=== PATIENT | female | born 1935 | race African-American/Black ===

== ENCOUNTER 2018-08-28 06:14 | Emergency (ER) | payer OTHER ==
[~2018-08-28] VITALS: Ht 157.5 cm; Wt 86.0 kg
[~2018-08-28 06:14] MED LIST: ALBU05 IH; AMLO10TA4 PO; ANAS1TAB49 PO; ASPI-1158 PO; AZAT50TA18 PO; DIGO125T82 PO; FURO-152 PO; GLIP10TA10 PO; ISOS60TA4 PO; LIP40 PO; MAGN400T26 PO; METF-416 PO; NITR0.4T49 SL; NPH,100I SQ; NPH,100V SQ; POTA-9 PO; SOTA120T PO; TROS20TA3 PO
[2018-08-28 07:24] LABS: CHLORIDE 112 mEq/L (98-107)
[2018-08-28 07:28] LABS: BASOPHILS % 1.1 % (0.0-2.0); EOSINOPHILS % 1.5 % (0.0-5.0); HEMATOCRIT. 34.3 % (36.0-48.0); HEMOGLOBIN. 11.1 g/dL (12.0-16.0); LYMPHOCYTES % 20.7 % (20.0-50.0); MEAN CORPUSCULAR HEMOGLOBIN 29.1 pg (28.0-32.0); MEAN CORPUSCULAR VOLUME 89.5 fL (81.0-99.0); MONOCYTES % 8.4 % (2.0-8.0); NEUTROPHILS % 68.3 % (40.0-76.0); PLATELET 279 x1000/uL (130-400); RED BLOOD CELL COUNT 3.83 mill/uL (4.2-5.4); RED CELL DISTRIBUTION WIDTH 14.5 % (11.6-14.6)
[2018-08-28 10:01] VITALS: BP 130/60
== END 2018-08-28 10:23 | disposition short-term general hospital (02) ==
LOC: ER 06:14
DX: R07.89 Other chest pain (principal); K21.9 Gastro-esophageal reflux disease without esophagitis; I10 Essential (primary) hypertension; I25.2 Old myocardial infarction; E78.00 Pure hypercholesterolemia, unspecified; E11.9 Type 2 diabetes mellitus without complications; J44.9 Chronic obstructive pulmonary disease, unspecified; Z79.4 Long term (current) use of insulin; Z88.8 Allergy status to other drugs, medicaments and biological substances; Z79.82 Long term (current) use of aspirin
CPT/HCPCS: 36415; 71045; 82962; 83880; 84484; 93005; 99285

== ENCOUNTER 2018-10-13 08:00 | Inpatient (IN) | payer OTHER ==
[~2018-10-13] VITALS: Ht 160 cm; Wt 86.2 kg
[2018-10-13] MEDS ORDERED: NITROGLYCERIN 0.4MG TABLET SL SL PRN (08:15)
[2018-10-13] MEDS ORDERED: ASPIRIN 81MG TABLET PO ONE (08:15)
[2018-10-13 08:58] LABS: BG BASE EXCESS -5.5 mmol/L (-2.0-2.0); BG BILEVEL POS AIRWAY PRESSURE 15/5; BG CARBOXYHEMOGLOBIN 1.2 % (0.5-1.5); BG DEOXYHEMOGLOBIN 2.5 % (0.0-5.0); BG FRACTION INSPIRED OXYGEN 50; BG HCO3 ACT 18.9 mmol/L (22.0-26.0); BG OXYGEN SATURATION 97.5 % (92.0-98.5); BG OXYHEMOGLOBIN 96.3 % (94.0-97.0); BG PCO2 33.9 mmHg (35.0-45.0); BG PH 7.365 (7.350-7.450); BG PO2 100.5 mmHg (75.0-100.0); BG SAMPLE SITE RIGHT RADIAL; BG TOTAL HEMOGLOBIN 13.4 g/dL (12.0-18.0); BG VENT MODE MASK - BIPAP; BG VENT RATE 18 set
[2018-10-13 09:26] LABS: HEMATOCRIT. 42.7 % (36.0-48.0); HEMOGLOBIN. 13.6 g/dL (12.0-16.0); MEAN CORPUSCULAR HEMOGLOBIN 28.3 pg (28.0-32.0); MEAN CORPUSCULAR VOLUME 88.7 fL (81.0-99.0); MEAN PLATELET VOLUME 9.9 fl (7.4-10.4); PLATELET 342 x1000/uL (130-400); RED BLOOD CELL COUNT 4.81 mill/uL (4.2-5.4)
[2018-10-13 09:29] LABS: CHLORIDE 104 mEq/L (98-107)
[2018-10-13] MEDS ORDERED: MORPHINE SULFATE 4 MG/ML CPJ (NOT FOR IM USE) IV ONE ×2 (10:00→12:30)
[2018-10-13] MEDS ORDERED: NITROGLYCERIN 0.1MG/HR PATCH TOP ONE (10:00)
[2018-10-13] MEDS ORDERED: ENOXAPARIN 100MG/ML SYR SUBCUT ONE (10:00)
[2018-10-13 10:01] LABS: PLATELET ESTIMATE NORMAL
[2018-10-13] MEDS ORDERED: LORAZEPAM 2MG/ML CPJ IV PRN (10:15)
[2018-10-13] MEDS ORDERED: NA PHOS,M-B/NA PHOS,DI-BA ENEMA 118ML PR PRN (10:15)
[2018-10-13] MEDS ORDERED: ENOXAPARIN 40MG/0.4ML SYR SUBCUT SCH (10:15)
[2018-10-13] MEDS ORDERED: GUAIFENESIN 200MG/10ML SUGAR FREE UDC PO PRN (10:15)
[2018-10-13] MEDS ORDERED: DIPHENHYDRAMINE 50MG/ML VIAL IV PRN (10:15)
[2018-10-13] MEDS ORDERED: MAGNESIUM/ALUMINUM HYDROXIDE/SIMETHICONE 30ML UDC PO PRN (10:15)
[2018-10-13] MEDS ORDERED: IPRATROPIUM/ALBUTEROL 0.5-3(2.5)MG/3ML NEB INH PRN (10:15)
[2018-10-13] MEDS ORDERED: ACETAMINOPHEN 325MG TABLET PO PRN (10:15)
[2018-10-13] MEDS ORDERED: DOCUSATE SODIUM 100MG CAPSULE PO PRN (10:15)
[2018-10-13] MEDS ORDERED: CLONIDINE 0.1MG TABLET PO PRN (10:15)
[2018-10-13] MEDS ORDERED: NITROGLYCERIN OINT 1GM/INCH UDPKT TD ONE (12:30)
[2018-10-13 13:00] VITALS: BP 146/92
[2018-10-13 14:00] VITALS: BP 146/101
[2018-10-13] MEDS: HYDRALAZINE HCL 25MG TABLET PO SCH ×2 (14:00→20:50)
[2018-10-13] MEDS: MORPHINE SULFATE 2 MG/ML CPJ (NOT FOR IM USE) IV PRN ×2 (14:28→20:48)
[2018-10-13 16:00] VITALS: BP 155/87
[2018-10-13] MEDS: IPRATROPIUM BROMIDE (0.02%) 0.5MG/2.5ML NEB HHN SCH ×2 (16:01→20:35)
[2018-10-13] MEDS ORDERED: METOPROLOL TARTRATE 25MG TABLET PO SCH (17:00)
[2018-10-13 17:26] LABS: CHLORIDE 109 mEq/L (98-107)
[2018-10-13 18:00] VITALS: BP 149/85
[2018-10-13] MEDS: FUROSEMIDE 40MG/4ML VIAL IV SCH (19:01)
[2018-10-13] MEDS: AMLODIPINE 5MG TABLET PO SCH (20:50)
[2018-10-13] MEDS: ATORVASTATIN CALCIUM 20MG TABLET PO SCH (20:51)
[2018-10-14] VITALS (12 sets, daily range): BP systolic 107–143; BP diastolic 56–87
[2018-10-14] MEDS: IPRATROPIUM BROMIDE (0.02%) 0.5MG/2.5ML NEB HHN SCH ×6 (00:24→20:38)
[2018-10-14] MEDS: HYDRALAZINE HCL 25MG TABLET PO SCH ×3 (06:02→20:48)
[2018-10-14] MEDS: FUROSEMIDE 40MG/4ML VIAL IV SCH ×2 (06:02→18:28)
[2018-10-14 08:44] LABS: BASOPHILS % 0.3 % (0.0-2.0); HEMATOCRIT. 41.9 % (36.0-48.0); HEMOGLOBIN. 13.5 g/dL (12.0-16.0); MEAN PLATELET VOLUME 9.9 fl (7.4-10.4); MONOCYTES % 6.8 % (2.0-8.0); NEUTROPHILS % 84.9 % (40.0-76.0); PLATELET 320 x1000/uL (130-400); RED BLOOD CELL COUNT 4.82 mill/uL (4.2-5.4); RED CELL DISTRIBUTION WIDTH 14.9 % (11.6-14.6)
[2018-10-14 08:51] LABS: CHLORIDE 106 mEq/L (98-107)
[2018-10-14 08:58] LABS: LDL CHOLESTEROL 104 mg/dL (5-100)
[2018-10-14] MEDS ORDERED: FUROSEMIDE 40MG/4ML VIAL IV SCH (09:00)
[2018-10-14] MEDS ORDERED: ENOXAPARIN 40MG/0.4ML SYR SUBCUT SCH (09:00)
[2018-10-14 09:02] LABS: T4 FREE 1.14 ng/dL (0.76-1.46)
[2018-10-14 09:03] LABS: HDL CHOLESTEROL 70 mg/dL (40-59)
[2018-10-14] MEDS: ASPIRIN 81MG EC TABLET PO SCH (09:05)
[2018-10-14] MEDS: AMLODIPINE 5MG TABLET PO SCH (09:06)
[2018-10-14 09:20] LABS: BG BASE EXCESS -0.2 mmol/L (-2.0-2.0); BG CARBOXYHEMOGLOBIN 0.5 % (0.5-1.5); BG DEOXYHEMOGLOBIN 5.1 % (0.0-5.0); BG FRACTION INSPIRED OXYGEN 28; BG METHEMOGLOBIN 0.1 % (0.0-1.5); BG OXYGEN SATURATION 94.9 % (92.0-98.5); BG OXYHEMOGLOBIN 94.3 % (94.0-97.0); BG PCO2 33.5 mmHg (35.0-45.0); BG PH 7.455 (7.350-7.450); BG PO2 75.6 mmHg (75.0-100.0); BG SAMPLE SITE LEFT RADIAL; BG TOTAL HEMOGLOBIN 13.6 g/dL (12.0-18.0); BG VENT MODE NASAL CANNULA
[2018-10-14] MEDS: CARVEDILOL 6.25 MG TABLET PO SCH ×2 (10:54→20:48)
[2018-10-14] MEDS: MORPHINE SULFATE 2 MG/ML CPJ (NOT FOR IM USE) IV PRN ×2 (10:55→20:59)
[2018-10-14] MEDS ORDERED: METOPROLOL TARTRATE 5MG/5ML VIAL IV PRN (11:00)
[2018-10-14] MEDS ORDERED: ENOXAPARIN 60MG/0.6ML SYR SUBCUT NR (11:30)
[2018-10-14] MEDS ORDERED: ESMOLOL 2500MG PREMIX 250 ML IV PRN (12:00)
[2018-10-14] MEDS: ONDANSETRON HCL 4MG/2ML INJ IV PRN (12:08)
[2018-10-14] MEDS ORDERED: KCL 20MEQ/100ML PREMIX 100 ML IV NR (12:30)
[2018-10-14 14:01] LABS: HEMATOCRIT 38.9 % (36.0-48.0); HEMOGLOBIN 12.8 g/dL (12.0-16.0); MEAN CORPUSCULAR HEMOGLOBIN 28.6 pg (28.0-32.0); MEAN CORPUSCULAR VOLUME 87.2 fL (81.0-99.0); PLATELET 304 x1000/uL (130-400); RED BLOOD CELL COUNT 4.46 mill/uL (4.2-5.4); RED CELL DISTRIBUTION WIDTH 14.5 % (11.6-14.6)
[2018-10-14] MEDS: ATORVASTATIN CALCIUM 20MG TABLET PO SCH (20:47)
[2018-10-14] MEDS: ENOXAPARIN 100MG/ML SYR SUBCUT SCH (20:50)
[2018-10-14] MEDS: METOPROLOL TARTRATE 5MG/5ML VIAL IV PRN (22:51)
[2018-10-15] VITALS (13 sets, daily range): BP systolic 86–116; BP diastolic 51–75
[2018-10-15] MEDS: IPRATROPIUM BROMIDE (0.02%) 0.5MG/2.5ML NEB HHN SCH ×6 (00:25→20:06)
[2018-10-15] MEDS: FUROSEMIDE 40MG/4ML VIAL IV SCH ×2 (06:48→18:25)
[2018-10-15] MEDS: HYDRALAZINE HCL 25MG TABLET PO SCH (06:48)
[2018-10-15] MEDS: ENOXAPARIN 100MG/ML SYR SUBCUT SCH (08:28)
[2018-10-15] MEDS: ASPIRIN 81MG EC TABLET PO SCH (08:29)
[2018-10-15] MEDS: CARVEDILOL 6.25 MG TABLET PO SCH ×2 (10:02→20:49)
[2018-10-15 11:29] LABS: CHLORIDE 101 mEq/L (98-107)
[2018-10-15 11:34] LABS: BASOPHILS % 0.6 % (0.0-2.0); EOSINOPHILS % 0.1 % (0.0-5.0); HEMATOCRIT. 38.8 % (36.0-48.0); HEMOGLOBIN. 12.8 g/dL (12.0-16.0); LYMPHOCYTES % 8.4 % (20.0-50.0); MEAN CORPUSCULAR HEMOGLOBIN 28.3 pg (28.0-32.0); MEAN CORPUSCULAR VOLUME 85.9 fL (81.0-99.0); MEAN PLATELET VOLUME 9.9 fl (7.4-10.4); MONOCYTES % 8.9 % (2.0-8.0); PLATELET 289 x1000/uL (130-400); RED BLOOD CELL COUNT 4.52 mill/uL (4.2-5.4); RED CELL DISTRIBUTION WIDTH 14.6 % (11.6-14.6)
[2018-10-15] MEDS: METOPROLOL TARTRATE 5MG/5ML VIAL IV PRN (11:41)
[2018-10-15] MEDS: MORPHINE SULFATE 2 MG/ML CPJ (NOT FOR IM USE) IV PRN (20:49)
[2018-10-15] MEDS: ATORVASTATIN CALCIUM 20MG TABLET PO SCH (20:49)
[2018-10-15] MEDS: ENOXAPARIN 80MG/0.8ML SYR SUBCUT SCH (20:55)
[2018-10-15] MEDS: ONDANSETRON HCL 4MG/2ML INJ IV PRN (20:59)
[2018-10-16] VITALS (12 sets, daily range): BP systolic 103–140; BP diastolic 51–69
[2018-10-16] MEDS: IPRATROPIUM BROMIDE (0.02%) 0.5MG/2.5ML NEB HHN SCH ×6 (00:19→21:34)
[2018-10-16 06:06] LABS: CHLORIDE 101 mEq/L (98-107)
[2018-10-16 06:09] LABS: BASOPHILS % 0.4 % (0.0-2.0); EOSINOPHILS % 0.5 % (0.0-5.0); HEMATOCRIT. 37.6 % (36.0-48.0); HEMOGLOBIN. 12.5 g/dL (12.0-16.0); LYMPHOCYTES % 14.9 % (20.0-50.0); MEAN CORPUSCULAR HEMOGLOBIN 28.7 pg (28.0-32.0); MEAN CORPUSCULAR VOLUME 86.5 fL (81.0-99.0); MEAN PLATELET VOLUME 10.5 fl (7.4-10.4); MONOCYTES % 13.6 % (2.0-8.0); NEUTROPHILS % 70.6 % (40.0-76.0); PLATELET 261 x1000/uL (130-400); RED BLOOD CELL COUNT 4.35 mill/uL (4.2-5.4); RED CELL DISTRIBUTION WIDTH 14.5 % (11.6-14.6)
[2018-10-16] MEDS: ASPIRIN 81MG EC TABLET PO SCH (08:08)
[2018-10-16] MEDS: FUROSEMIDE 40MG/4ML VIAL IV SCH ×2 (08:09→16:35)
[2018-10-16] MEDS: CARVEDILOL 6.25 MG TABLET PO SCH ×2 (08:09→20:45)
[2018-10-16] MEDS: ENOXAPARIN 80MG/0.8ML SYR SUBCUT SCH ×2 (08:10→20:45)
[2018-10-16] MEDS ORDERED: POTASSIUM CHLORIDE 20MEQ TABLET SR PO SCH (08:45)
[2018-10-16] MEDS: ATORVASTATIN CALCIUM 20MG TABLET PO SCH (20:45)
[2018-10-16] MEDS: MORPHINE SULFATE 2 MG/ML CPJ (NOT FOR IM USE) IV PRN (20:58)
[2018-10-17] VITALS (11 sets, daily range): BP systolic 104–128; BP diastolic 47–91
[2018-10-17] MEDS: IPRATROPIUM BROMIDE (0.02%) 0.5MG/2.5ML NEB HHN SCH ×5 (01:40→16:04)
[2018-10-17 06:13] LABS: BASOPHILS % 0.8 % (0.0-2.0); EOSINOPHILS % 0.6 % (0.0-5.0); HEMATOCRIT. 37.6 % (36.0-48.0); HEMOGLOBIN. 12.4 g/dL (12.0-16.0); LYMPHOCYTES % 15.5 % (20.0-50.0); MEAN CORPUSCULAR HEMOGLOBIN 28.5 pg (28.0-32.0); MEAN CORPUSCULAR VOLUME 86.4 fL (81.0-99.0); MONOCYTES % 13.1 % (2.0-8.0); PLATELET 235 x1000/uL (130-400); RED BLOOD CELL COUNT 4.35 mill/uL (4.2-5.4); RED CELL DISTRIBUTION WIDTH 14.6 % (11.6-14.6)
[2018-10-17] MEDS: FUROSEMIDE 40MG/4ML VIAL IV SCH (06:20)
[2018-10-17] MEDS: ASPIRIN 81MG EC TABLET PO SCH (08:13)
[2018-10-17] MEDS: CARVEDILOL 6.25 MG TABLET PO SCH (08:13)
[2018-10-17] MEDS: ENOXAPARIN 80MG/0.8ML SYR SUBCUT SCH (08:14)
[2018-10-17 08:58] LABS: CHLORIDE 99 mEq/L (98-107)
[2018-10-17] MEDS: MORPHINE SULFATE 2 MG/ML CPJ (NOT FOR IM USE) IV PRN (11:17)
[2018-10-18] MEDS ORDERED: FUROSEMIDE 20MG TABLET PO SCH (07:15)
== END 2018-10-17 23:54 | disposition short-term general hospital (02) | DRG 280 ==
LOC: ER 08:00 → 5EST 10:14 → EDBEDREQ 10:18 → EDBEDREQSVC 10:18 → EDBEDREQTM 10:18 → ENRESERV 11:06
PROVIDERS: ADMIT Internal Medicine; ATTEND Internal Medicine
PROC: 5A09357 Assistance with Respiratory Ventilation, Less than 24 Consecutive Hours, Continuous Positive Airway Pressure (ICD-10-PCS; principal; 2018-10-13)
DX: I21.4 Non-ST elevation (NSTEMI) myocardial infarction (principal); J96.00 Acute respiratory failure, unspecified whether with hypoxia or hypercapnia; I50.43 Acute on chronic combined systolic (congestive) and diastolic (congestive) heart failure; E46 Unspecified protein-calorie malnutrition; I25.10 Atherosclerotic heart disease of native coronary artery without angina pectoris; E11.9 Type 2 diabetes mellitus without complications; I11.0 Hypertensive heart disease with heart failure; E78.5 Hyperlipidemia, unspecified; J44.9 Chronic obstructive pulmonary disease, unspecified; D64.9 Anemia, unspecified; I25.5 Ischemic cardiomyopathy; I48.91 Unspecified atrial fibrillation; E78.00 Pure hypercholesterolemia, unspecified; K21.9 Gastro-esophageal reflux disease without esophagitis; K59.00 Constipation, unspecified; Z82.49 Family history of ischemic heart disease and other diseases of the circulatory system; Z88.6 Allergy status to analgesic agent; Z95.5 Presence of coronary angioplasty implant and graft; Z88.4 Allergy status to anesthetic agent; Z88.8 Allergy status to other drugs, medicaments and biological substances; Z79.82 Long term (current) use of aspirin; Z79.84 Long term (current) use of oral hypoglycemic drugs; Z79.899 Other long term (current) drug therapy; Z83.3 Family history of diabetes mellitus
CPT/HCPCS: 36415; 36600; 71045; 80048; 80061; 82375; 82805; 83036; 83735; 83880; 84439; 84443; 84484; 85027; 93005; 93306; 94003; 94640; 94660; 96372; 96374; 99291; J1200; J1650; J1940; J2060; J2270; J2405; J3480; J3490; J7050

== ENCOUNTER 2019-07-12 15:05 | Emergency (ER) | payer OTHER ==
[~2019-07-12] VITALS: Ht 165.1 cm; Wt 69.0 kg
[~2019-07-12 15:05] MED LIST changes: +DIGO125T PO; -DIGO125T82 PO
[2019-07-12] MEDS ORDERED: SODIUM CHLORIDE 0.9% 1,000 ML IV ONE (15:32)
[2019-07-12 16:02] LABS: BASOPHILS % 0.4 % (0.0-2.0); EOSINOPHILS % 0.3 % (0.0-5.0); HEMATOCRIT. 38.6 % (36.0-48.0); HEMOGLOBIN. 12.4 g/dL (12.0-16.0); LYMPHOCYTES % 10.4 % (20.0-50.0); MEAN CORPUSCULAR HEMOGLOBIN 29.4 pg (28.0-32.0); MEAN CORPUSCULAR VOLUME 91.8 fL (81.0-99.0); MEAN PLATELET VOLUME 9.9 fl (7.4-10.4); MONOCYTES % 5.3 % (2.0-8.0); NEUTROPHILS % 83.6 % (40.0-76.0); PLATELET 233 x1000/uL (130-400); RED CELL DISTRIBUTION WIDTH 13.7 % (11.6-14.6)
[2019-07-12 16:03] LABS: CHLORIDE 105 mEq/L (98-107)
[2019-07-12 16:06] LABS: INR 0.9; PROTHROMBIN TIME 10.3 sec (9.6-11.0)
[2019-07-12 20:15] VITALS: BP 111/54
== END 2019-07-12 20:48 | disposition home or self-care (01) ==
LOC: ER 15:05
DX: R55 Syncope and collapse (principal); E86.0 Dehydration; J44.9 Chronic obstructive pulmonary disease, unspecified; E11.9 Type 2 diabetes mellitus without complications; K21.9 Gastro-esophageal reflux disease without esophagitis; E78.00 Pure hypercholesterolemia, unspecified; I25.10 Atherosclerotic heart disease of native coronary artery without angina pectoris; I10 Essential (primary) hypertension; Z88.1 Allergy status to other antibiotic agents; Z79.4 Long term (current) use of insulin; Z88.2 Allergy status to sulfonamides; Z88.8 Allergy status to other drugs, medicaments and biological substances; Z98.61 Coronary angioplasty status
CPT/HCPCS: 36415; 71045; 80053; 84484; 85025; 85610; 93005; 96360; 96361; 99285; J7030

== ENCOUNTER 2020-05-24 23:48 | Emergency (ER) | payer OTHER ==
[~2020-05-24] VITALS: Ht 167.6 cm; Wt 73.0 kg
[~2020-05-24 23:48] MED LIST changes: -ASPI-1158 PO; +ASPI-1406 PO; -ISOS60TA4 PO; +ISOS60TA76 PO
[2020-05-25 01:03] LABS: BASOPHILS % 0.5 % (0.0-2.0); EOSINOPHILS % 0.9 % (0.0-5.0); HEMATOCRIT. 33.2 % (36.0-48.0); HEMOGLOBIN. 10.9 g/dL (12.0-16.0); LYMPHOCYTES % 10.1 % (20.0-50.0); MEAN CORPUSCULAR HEMOGLOBIN 30.4 pg (28.0-32.0); MEAN CORPUSCULAR VOLUME 92.8 fL (81.0-99.0); MEAN PLATELET VOLUME 8.8 fl (7.4-10.4); MONOCYTES % 8.1 % (2.0-8.0); NEUTROPHILS % 80.4 % (40.0-76.0); PLATELET 205 x1000/uL (130-400); RED BLOOD CELL COUNT 3.58 mill/uL (4.2-5.4); RED CELL DISTRIBUTION WIDTH 13.5 % (11.6-14.6)
[2020-05-25 01:05] LABS: CHLORIDE 106 mEq/L (98-107)
[2020-05-25 03:08] VITALS: BP 116/51
== END 2020-05-25 03:19 | disposition short-term general hospital (02) ==
LOC: ER 23:48
DX: R07.89 Other chest pain (principal); R55 Syncope and collapse; J45.909 Unspecified asthma, uncomplicated; I25.10 Atherosclerotic heart disease of native coronary artery without angina pectoris; J44.9 Chronic obstructive pulmonary disease, unspecified; E11.9 Type 2 diabetes mellitus without complications; K21.9 Gastro-esophageal reflux disease without esophagitis; E78.00 Pure hypercholesterolemia, unspecified; I10 Essential (primary) hypertension; Z79.899 Other long term (current) drug therapy; Z79.4 Long term (current) use of insulin; Z88.2 Allergy status to sulfonamides
CPT/HCPCS: 36415; 71045; 80053; 84484; 85025; 93005; 99285

== ENCOUNTER 2020-12-03 11:52 | Emergency (ER) | payer OTHER ==
[~2020-12-03] VITALS: Ht 167.6 cm; Wt 80.0 kg
[2020-12-03] MEDS ORDERED: SODIUM CHLORIDE 0.9% 1,000 ML IV ONE (12:15)
[2020-12-03 13:15] LABS: BASOPHILS % 0.6 % (0.0-2.0); EOSINOPHILS % 0.2 % (0.0-5.0); HEMATOCRIT. 33.2 % (36.0-48.0); HEMOGLOBIN. 11.1 g/dL (12.0-16.0); LYMPHOCYTES % 15.7 % (20.0-50.0); MEAN CORPUSCULAR HEMOGLOBIN 30.7 pg (28.0-32.0); MEAN CORPUSCULAR VOLUME 91.9 fL (81.0-99.0); MEAN PLATELET VOLUME 8.5 fl (7.4-10.4); MONOCYTES % 8.9 % (2.0-8.0); NEUTROPHILS % 74.6 % (40.0-76.0); PLATELET 297 x1000/uL (130-400); RED BLOOD CELL COUNT 3.61 mill/uL (4.2-5.4); RED CELL DISTRIBUTION WIDTH 15.4 % (11.6-14.6)
[2020-12-03 13:19] LABS: CHLORIDE 99 mEq/L (98-107)
[2020-12-03 13:25] LABS: PROTHROMBIN TIME 10.9 sec (9.6-11.0)
[2020-12-03] MEDS ORDERED: ACETAMINOPHEN 325MG TABLET PO NR (15:36)
[2020-12-03] MEDS ORDERED: NITROGLYCERIN OINT 1GM/INCH UDPKT TD NR (15:45)
[2020-12-03] MEDS ORDERED: ASPIRIN 81MG TABLET PO NR (15:45)
[2020-12-03 16:24] LABS: CLARITY URINE CLOUDY (CLEAR); COLOR URINE YELLOW (YELLOW); KETONES URINE NEGATIVE (NEGATIVE); LEUKOCYTE ESTERASE URINE 2+ (NEGATIVE); NITRITE URINE NEGATIVE (NEGATIVE); OCCULT BLOOD URINE NEGATIVE (NEGATIVE); PROTEIN URINE NEGATIVE (NEGATIVE); SPECIFIC GRAVITY URINE 1.013 (1.005-1.030); UROBILINOGEN URINE 0.2 E.U./dL (0.2-1.0)
[2020-12-03] MEDS ORDERED: LEVOFLOXACIN 500MG PREMIX 100 ML IV ONE (17:45)
[2020-12-03] MEDS ORDERED: MORPHINE SULFATE 2 MG/ML CPJ (NOT FOR IM USE) IV ONE (17:45)
[2020-12-03] MEDS ORDERED: ONDANSETRON HCL 4MG/2ML INJ IV ONE (18:00)
[2020-12-03 20:25] VITALS: BP 146/79
== END 2020-12-03 20:42 | disposition short-term general hospital (02) ==
LOC: ER 11:52 → EDBEDREQTM 16:02 → EDBEDREQ 16:02 → ER 20:42 → CANBEDREQ 20:47
DX: N17.9 Acute kidney failure, unspecified (principal); N10 Acute pyelonephritis; R55 Syncope and collapse; D64.9 Anemia, unspecified; E11.9 Type 2 diabetes mellitus without complications; J44.9 Chronic obstructive pulmonary disease, unspecified; I25.10 Atherosclerotic heart disease of native coronary artery without angina pectoris; I10 Essential (primary) hypertension; K21.9 Gastro-esophageal reflux disease without esophagitis; E78.00 Pure hypercholesterolemia, unspecified; Z88.2 Allergy status to sulfonamides; Z88.8 Allergy status to other drugs, medicaments and biological substances; Z79.82 Long term (current) use of aspirin; Z79.84 Long term (current) use of oral hypoglycemic drugs
CPT/HCPCS: 36415; 70450; 71045; 72125; 74176; 80053; 81003; 83880; 84484; 85025; 85610; 87086; 96361; 96365; 96375; 99291; J1956; J2270; J2405; J7030

== ENCOUNTER 2022-04-04 05:11 | Emergency (ER) | payer OTHER ==
[~2022-04-04] VITALS: Ht 165.1 cm; Wt 79.0 kg
[~2022-04-04 05:11] MED LIST changes: +POTA-203 PO; -POTA-9 PO
[2022-04-04] MEDS ORDERED: MORPHINE SULFATE 4 MG/ML CPJ (NOT FOR IM USE) IV STA (06:52)
[2022-04-04] MEDS ORDERED: ONDANSETRON HCL 4MG/2ML INJ IV STA (06:52)
[2022-04-04] MEDS ORDERED: SODIUM CHLORIDE 0.9% 500 ML IV ONE (07:00)
[2022-04-04 08:05] LABS: BASOPHILS % 0.4 % (0.0-2.0); EOSINOPHILS % 0.2 % (0.0-5.0); HEMATOCRIT. 25.7 % (36.0-48.0); HEMOGLOBIN. 8.5 g/dL (12.0-16.0); LYMPHOCYTES % 7.6 % (20.0-50.0); MEAN CORPUSCULAR HEMOGLOBIN 29.2 pg (28.0-32.0); MEAN CORPUSCULAR VOLUME 87.8 fL (81.0-99.0); MEAN PLATELET VOLUME 8.7 fl (7.4-10.4); NEUTROPHILS % 86.8 % (40.0-76.0); PLATELET 309 x1000/uL (130-400); RED BLOOD CELL COUNT 2.92 mill/uL (4.2-5.4); RED CELL DISTRIBUTION WIDTH 16.2 % (11.6-14.6)
[2022-04-04 08:11] LABS: CHLORIDE 108 mEq/L (98-107)
[2022-04-04 08:14] LABS: PROTHROMBIN TIME 10.7 sec (9.6-11.0)
[2022-04-04] MEDS ORDERED: ACET-2708 MT (12:59)
[2022-04-04] MEDS ORDERED: ACETAMINOPHEN 325MG TABLET PO ONE (13:00)
[2022-04-04 14:28] LABS: CLARITY URINE CLEAR (CLEAR); COLOR URINE YELLOW (YELLOW); KETONES URINE NEGATIVE (NEGATIVE); LEUKOCYTE ESTERASE URINE NEGATIVE (NEGATIVE); NITRITE URINE NEGATIVE (NEGATIVE); OCCULT BLOOD URINE NEGATIVE (NEGATIVE); PH URINE 7.5 (4.5-8.0); PROTEIN URINE NEGATIVE (NEGATIVE); SPECIFIC GRAVITY URINE 1.015 (1.005-1.030)
[2022-04-04 15:29] VITALS: BP 102/43
== END 2022-04-04 15:34 | disposition home or self-care (01) ==
LOC: ER 05:16
DX: R10.13 Epigastric pain (principal); R11.0 Nausea; J44.9 Chronic obstructive pulmonary disease, unspecified; Z85.9 Personal history of malignant neoplasm, unspecified; I25.2 Old myocardial infarction; Z79.899 Other long term (current) drug therapy
CPT/HCPCS: 36415; 74176; 80053; 81003; 82962; 83605; 83690; 84484; 85025; 85610; 93005; 96361; 96374; 96375; 99285; J2270; J2405; J7040

== ENCOUNTER 2023-06-14 15:07 | Emergency (ER) | payer OTHER ==
[~2023-06-14] VITALS: Ht 165.1 cm; Wt 55.0 kg
[~2023-06-14 15:07] MED LIST changes: +ACET-2708 MT
[2023-06-14 15:09] VITALS: O2SAT 99
[2023-06-14 17:25] LABS: BASOPHILS % 0.6 % (0.0-2.0); EOSINOPHILS % 0.5 % (0.0-5.0); HEMATOCRIT. 30.3 % (36.0-48.0); HEMOGLOBIN. 9.6 g/dL (12.0-16.0); LYMPHOCYTES % 22.5 % (20.0-50.0); MEAN CORPUSCULAR HEMOGLOBIN 30.7 pg (28.0-32.0); MEAN CORPUSCULAR HGB CONC 31.7 g/dL (31.0-37.0); MEAN CORPUSCULAR VOLUME 96.8 fL (81.0-99.0); MEAN PLATELET VOLUME 8.3 fl (7.4-10.4); MONOCYTES % 6.5 % (2.0-8.0); NEUTROPHILS % 69.9 % (40.0-76.0); PLATELET 293 x1000/uL (130-400); RED BLOOD CELL COUNT 3.13 mill/uL (4.2-5.4); RED CELL DISTRIBUTION WIDTH 16.2 % (11.6-14.6); WHITE BLOOD COUNT 4.9 x1000/uL (4.5-11.0)
[2023-06-14 17:49] LABS: ALANINE AMINOTRANSFERASE 19 IU/L (10-49); ALBUMIN 3.8 g/dL (3.2-4.8); ASPARTATE AMINOTRANSFERASE 24 IU/L (<34); BILIRUBIN TOTAL 0.8 mg/dL (0.1-1.0); CALCIUM 9.1 mg/dL (8.7-10.4); CARBON DIOXIDE 26 mEq/L (21-32); CHLORIDE 105 mEq/L (98-107); CREATININE 0.9 mg/dL (0.6-1.0); GLUCOSE 102 mg/dL (70-105); POTASSIUM 4.7 mEq/L (3.5-5.1); PROTEIN TOTAL 5.6 g/dL (6.0-8.3); SODIUM 138 mEq/L (136-145); TROPONIN I HIGH SENSITIVITY 5 ng/L (3.0-34); UREA NITROGEN BLOOD 30 mg/dL (9-23)
[2023-06-14 20:47] LABS: INR 0.9; PARTIAL THROMBOPLASTIN TIME 23.4 sec (23.4-31.0); PROTHROMBIN TIME 10.5 sec (9.6-11.0)
[2023-06-14 20:53] LABS: TROPONIN I HIGH SENSITIVITY 6 ng/L (3.0-34)
[2023-06-14] MEDS ORDERED: FAMO40TA70 MT (21:08)
[2023-06-14] MEDS ORDERED: MAG-55 MT (21:08)
[2023-06-14 21:30] VITALS: BP 131/68; PULSE 72; RESP 16; TEMP 98.5
== END 2023-06-14 21:59 | disposition home or self-care (01) ==
LOC: ER 15:07
DX: R07.89 Other chest pain (principal); J44.1 Chronic obstructive pulmonary disease with (acute) exacerbation; I25.2 Old myocardial infarction; I10 Essential (primary) hypertension; Z88.6 Allergy status to analgesic agent; Z88.1 Allergy status to other antibiotic agents; Z88.2 Allergy status to sulfonamides; Z88.4 Allergy status to anesthetic agent; Z88.8 Allergy status to other drugs, medicaments and biological substances; Z79.82 Long term (current) use of aspirin
CPT/HCPCS: 36415; 71045; 80053; 83880; 84484; 85025; 93005; 99285